=== PATIENT | female | born 1990 ===

== ENCOUNTER 2020-11-03 16:24 | Emergency (ER) | payer OTHER ==
[~2020-11-03] VITALS: Ht 154.9 cm; Wt 74.0 kg
--- NOTE | 2020-11-03 16:55 | NUR ---
ASSUMED CARE OF PT. PT REPORTS SHE THINK SHE DRANK TOO MUCH YESTERDAY, HAS BEEN N/V CAN'T KEEP ANYTHING DOWN. FEEL WEAK.
[2020-11-03] MEDS ORDERED: FAMOTIDINE 20 MG/2 ML ONE (16:59)
[2020-11-03] MEDS ORDERED: ONDANSETRON 2MG/ML, 2ML ONE (16:59)
[2020-11-03] MEDS ORDERED: ONDANSETRON 2MG/ML, 2ML IVPush ONE (17:00)
[2020-11-03] MEDS ORDERED: FAMOTIDINE 20 MG/2 ML IVPush ONE (17:00)
[2020-11-03] MEDS ORDERED: SODIUM CHLORIDE 0.9% 1,000ML IVBOLUS ONE (17:00)
--- NOTE | 2020-11-03 17:30 | NUR ---
PIV INSERTED. PT MEDICATED, SEE EMAR. VSS, NADN. CALL LIGHT WITHIN REACH.
[2020-11-03 17:41] LABS: BASOPHILS % (AUTO) 0 % (0-1); EOSINOPHILS % (AUTO) 0 % (1-7); LYMPHOCYTES % (AUTO) 8 % (22-44); MEAN CORPUSCULAR HEMOGLOBIN 30.3 pg (27.0-34.8); MEAN CORPUSCULAR HGB CONC 33.3 g/dL (32.4-35.8); MEAN PLATELET VOLUME 8.3 fL (7.4-10.4); MONOCYTES % (AUTO) 3 % (2-9); NEUTROPHILS % (AUTO) 89 % (42-75); PLATELET COUNT 297 x10^3/uL (130-400); RED BLOOD COUNT 4.23 x10^6/uL (3.82-5.3); RED CELL DISTRIBUTION WIDTH 12.7 % (9.6-15.2)
[2020-11-03 17:54] VITALS: BP 138/80
[2020-11-03 17:54] LABS: ANION GAP 10 mmol/L (5-15); CALCIUM 9.1 mg/dL (8.5-10.1); CHLORIDE 108 mmol/L (98-107)
--- NOTE | 2020-11-03 17:54 | NUR ---
PT PROVIDED ICE CHIPS. REPORTS N HAS IMPROVED. NS STILL RUNNING. VSS, JOIE. CALL LIGHT W/IN REACH
[2020-11-03 18:00] LABS: ALANINE AMINOTRANSFERASE 27 U/L (12-78); ALKALINE PHOSPHATASE 55 U/L (45-117); BILIRUBIN,TOTAL 0.3 mg/dL (0.2-1.0); CREATININE 0.87 mg/dL (0.55-1.02); TOTAL PROTEIN 8.6 g/dL (6.4-8.2)
[2020-11-03 18:04] LABS: MD SCAN
--- NOTE | 2020-11-03 18:22 | NUR ---
PT UPDATED ON POC. VSS, NADN. CALL LIGHT WITHIN REACH.
--- NOTE | 2020-11-03 18:35 | NUR ---
Patient given discharge instructions and they have confirmed that they understand the instructions. Patient ambulatory with steady gait.
== END 2020-11-03 18:41 | disposition home or self-care (01) ==
LOC: ED 18:22
DX: K29.00 Acute gastritis without bleeding (principal); R00.0 Tachycardia, unspecified
CPT/HCPCS: 36415; 80053; 83690; 84703; 85025; 96361; 96374; 96375; 99285; J2405; J7030